=== PATIENT | male | born 1940 | race Caucasian/White ===

== ENCOUNTER 2016-10-09 16:17 | Emergency (ER) | payer MEDICARE, OTHER ==
[~2016-10-09] VITALS: Ht 177.8 cm; Wt 104.0 kg
[2016-10-09 16:21] VITALS: Ht 177.8 cm; Wt 104.0 kg
[2016-10-09] MEDS ORDERED: ACETAMINOPHEN 325 MG TAB PO ONE (17:00)
[2016-10-09] MEDS ORDERED: DIPHTH/TET/ACEL PERTUSS (ADULT) 0.5 ML VIAL IM* ONE (17:00)
[2016-10-09] MEDS ORDERED: NEOM28OI TP (17:11)
[2016-10-09] MEDS ORDERED: ACET1TAB40 PO (17:11)
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
== END 2016-10-09 17:32 | disposition home or self-care (01) ==
LOC: FTE 16:17
DX: T22.211A Burn of second degree of right forearm, initial encounter (principal); T21.21XA Burn of second degree of chest wall, initial encounter; F17.210 Nicotine dependence, cigarettes, uncomplicated; X16.XXXA Contact with hot heating appliances, radiators and pipes, initial encounter; Y92.9 Unspecified place or not applicable; Z23 Encounter for immunization
CPT/HCPCS: 90471; 90715